=== PATIENT | male | born 1975 | race Caucasian/White ===

== ENCOUNTER 2022-07-14 10:37 | Emergency (ER) | payer MEDICAID ==
[~2022-07-14] VITALS: Ht 165.1 cm; Wt 73.0 kg
[2022-07-14] MEDS ORDERED: KETOROLAC 60MG/2ML VIAL IM ONE (11:45)
[2022-07-14 12:03] VITALS: BP 116/80
== END 2022-07-14 12:04 | disposition home or self-care (01) ==
LOC: ER 10:37
DX: F15.129 Other stimulant abuse with intoxication, unspecified (principal); R10.84 Generalized abdominal pain; R53.1 Weakness; F48.1 Depersonalization-derealization syndrome
CPT/HCPCS: 96372; 99283